=== PATIENT | female | born 1955 | race Caucasian/White ===

== ENCOUNTER 2020-01-20 18:45 | Emergency (ER) | payer MEDICARE, BC ==
--- NOTE | 2020-01-20 19:02 | EDM.PDOC ---
ED HPI GENERAL MEDICAL PROBLEM - General Chief Complaint: Lower Extremity Injury/Pain Stated Complaint: [facility] Time Seen by Provider: 01/20/20 19:02 - History of Present Illness INITIAL COMMENTS - FREE TEXT/NARRATIVE: 64-year-old female brought in by EMS after a slip and fall at [facility]. The patient was walking through the needle at [facility] and believes she slipped on some feces, the origin of this is unclear. This led to her falling and injuring her right knee. She denies any other injury associated with this except he may have stubbed her right great toe however this seems to be working okay and is not bothering her at this time she is not aware of any other associated injury secondary to this most untimely event. Significant medical problems she did not hit her head and has no other complaints. Right Knee Pain Score (Numeric/FACES): 7 - Related Data Allergies Allergy/AdvReac Type Severity Reaction Status Date / Time ibuprofen Allergy Hives Verified 01/20/20 18:57 Home Meds: Home Meds Thyroid [[place] Thyroid] 30 mg PO DAILY 01/20/20 [History] Social & Family History - Tobacco Use Smoking Status *Q: Never Smoker Second Hand Smoke Exposure: No - Caffeine Use Caffeine Use: Reports: None - Recreational Drug Use Recreational Drug Type: Reports: Marijuana/Hashish Review of Systems - Review of Systems Review Of Systems: See Below Constitutional: Reports: No Symptoms Respiratory: Reports: No Symptoms Cardiovascular: Reports: No Symptoms Genitourinary: Reports: No Symptoms Musculoskeletal: Reports: Other (Associated knee pain) Skin: Reports: No Symptoms Neurological: Reports: No Symptoms ED EXAM, GENERAL - Physical Exam Exam: See Below Exam Limited By: No Limitations General Appearance: Alert, No Apparent Distress, Other (Sitting there with her knees flexed she has obvious patella probable tendon disruption on the right as her patella is very high riding she will not attempt to straighten out her knee) Head: Atraumatic, Normocephalic Neck: Normal Inspection, Supple, Non-Tender, Full Range of Motion Respiratory/Chest: No Respiratory Distress, Lungs Clear, Normal Breath Sounds Cardiovascular: Regular Rate, Rhythm, No Edema, No Murmur Extremities: Other (Ocular status of her right foot appears to be normal patient will not allow me to reposition her leg. However the patella is in the patellofemoral groove but very high riding.) Course - Vital Signs Last Recorded V/S: Last Vital Signs Temp 36.2 C 01/20/20 18:54 Pulse 71 01/20/20 18:54 Resp 18 01/20/20 18:54 BP 112/62 01/20/20 18:54 Pulse Ox 98 01/20/20 18:54 - Orders/Labs/Meds Orders: Active Orders 24 hr Category Date Time Status Knee 1V or 2V Rt [CR] Stat Exams 01/20/20 19:08 Taken Durable Medical Equipment for Discharge [DME for Oth 01/20/20 19:55 Ordered Discharge] [COMM] Stat - Re-Assessments/Exams Free Text/Narrative Re-Assessment/Exam: 01/20/20 19:23 Obtain x-rays of the knee. And then proceed after that. 01/20/20 19:57 Shows a high riding patella on the lateral view the only views that could be obtained were a sunrise and the patella she has a high riding patella with what looks like a bony fragment I would presume from the tibial tuberosity however do not have good no views of the tibial tuberosity to be certain of this. Case was discussed with Dr. Arteaga, orthopedics on-call he recommends to a hinged knee brace if we have 1 as the patient cannot straighten her knee out and if this does not work posterior splint in the position she is in he would like to see her in the office on Tuesday or Tuesday. Departure - Departure Time of Disposition: 20:23 Disposition: Home, Self-Care 01 Clinical Impression: Avulsion of right patellar tendon - Discharge Information Referrals: Ronaldo Dorman MD [Primary Care Provider] - Reagan Arteaga MD [Physician] - Forms: ED Department Discharge Additional Instructions: Return to the emergency room with any questions problems or worsening symptoms. Tylenol as needed for discomfort if this does not work use the hydrocodone. If using the hydrocodone allow 12 hours after using this before driving returning to work or using hazardous equipment. Also if using the hydrocodone on a regular basis take a good stool softener as some people are prone to get constipation with this. Follow-up with Dr. Arteaga on Tuesday or Tuesday of this week. Call his office first thing tomorrow morning to schedule an appointment Wear the brace and use crutches at all times. Sepsis Event Note (ED) - Evaluation Sepsis Screening Result: No Definite Risk - Focused Exam Vital Signs: Vital Signs Temp Pulse Resp BP Pulse Ox 01/20/20 18:54 36.2 C 71 18 112/62 98 - My Orders Last 24 Hours: My Active Orders 01/20/20 19:08 Knee 1V or 2V Rt [CR] Stat 01/20/20 19:55 Durable Medical Equipment for Discharge [DME for Discharge] [COMM] Stat - Assessment/Plan Last 24 Hours: My Active Orders 01/20/20 19:08 Knee 1V or 2V Rt [CR] Stat 01/20/20 19:55 Durable Medical Equipment for Discharge [DME for Discharge] [COMM] Stat
--- NOTE | 2020-01-21 12:01 | CR ---
Right knee: Lateral and sunrise patellar views of the right knee were obtained. Inferior patellar fracture is seen with displacement. Mild comminution is also noted. No additional abnormality is seen. Impression: 1. Distal patellar fracture with displacement and comminution. Diagnostic code #3 This report was dictated in MDT
== END 2020-01-20 20:30 | disposition home or self-care (01) ==
LOC: JD.ED 18:45
DX: S76.191A Other specified injury of right quadriceps muscle, fascia and tendon, initial encounter (principal); Z88.6 Allergy status to analgesic agent; Z79.899 Other long term (current) drug therapy; W01.0XXA Fall on same level from slipping, tripping and stumbling without subsequent striking against object, initial encounter; Y92.512 Supermarket, store or market as the place of occurrence of the external cause
CPT/HCPCS: 73560-26-RT; 73560-RT; 99282; 99284

== ENCOUNTER 2020-01-31 06:23 | Day surgery (SDC) | payer MEDICARE, BC ==
[~2020-01-31 06:23] MED LIST: Lactated Ringers 1,000 ML IV SCH; Lidocaine 1%/Sod Bicarbonate in NS 8.4% 1 ML Syringe IDERM PRN; Sodium Chloride 0.9% 10 ML Syringe FLUSH PRN
[2020-01-31] MEDS ORDERED: Ropivacaine 0.5% 5 MG/ML 30 ML SDV ONE (06:30)
--- NOTE | 2020-01-31 06:33 | PCM.PREANE ---
Preanesthetic Assessment - Procedure Proposed Procedure: orif right patella fracture - Anesthesia/Transfusion/Family Hx Anesthesia History: Prior Anesthesia Without Reaction Family History of Anesthesia Reaction: No Transfusion History: No Prior Transfusion(s) - Review of Systems General: No Symptoms Pulmonary: Cough (chronic cough) Cardiovascular: No Symptoms Gastrointestinal: No Symptoms Neurological: No Symptoms Other: Reports: Thyroid Problems, Anxiety - Physical Assessment NPO Status Date: 01/30/20 NPO Status Time: 19:00 Vital Signs: 83 16 100% 144/84 97.2 Height: 5 ft 6 in Weight: 59 kg ASA Class: 2 Mental Status: Alert & Oriented x3 Airway Class: Mallampati = 1 Dentition: Reports: Normal Dentition Thyro-Mental Finger Breadths: 3 Mouth Opening Finger Breadths: 3 ROM/Head Extension: Full Lungs: Clear to Auscultation, Normal Respiratory Effort Cardiovascular: Regular Rate, Regular Rhythm - Lab Values: Laboratory Last Values COVID-19 PCR Not detected (NOT DETECT) 01/28/20 12:00 MRSA (PCR) Negative 01/23/20 13:22 - Allergies Allergies/Adverse Reactions: Allergies Allergy/AdvReac Type Severity Reaction Status Date / Time ibuprofen Allergy Hives Verified 01/30/20 13:41 - Blood Blood Available: No - Acknowledgements Anesthesia Type Planned: MAC Pt an Appropriate Candidate for the Planned Anesthesia: Yes Alternatives and Risks of Anesthesia Discussed w Pt/Guardian: Yes Pt/Guardian Understands and Agrees with Anesthesia Plan: Yes PreAnesthesia Questionnaire HEENT History: Reports: Impaired Vision, Other (See Below) Other HEENT History: WEARS GLASSES Cardiovascular History: Reports: None Respiratory History: Reports: Other (See Below) Other Respiratory History: CHRONIC COUGH Gastrointestinal History: Reports: None Genitourinary History: Reports: None UNCLAIMED PROPERTY MANAGER History: Reports: Other (See Below) Other OB/BYN History: CERVICAL DYSPLASIA, HRT THERAPY, VAGINAL VENEREAL WARTS, CONE BIOPSY Musculoskeletal History: Reports: Other (See Below) Other Musculoskeletal History: RIGHT PATELLA FRACTURE, AVULSION OF TIBIA Neurological History: Reports: None Psychiatric History: Reports: None Endocrine/Metabolic History: Reports: Hypothyroidism Hematologic History: Reports: None Immunologic History: Reports: None Oncologic (Cancer) History: Reports: None Dermatologic History: Reports: None - Past Surgical History Head Surgeries/Procedures: Reports: None Cardiovascular Surgical History: Reports: None Respiratory Surgical History: Reports: None GI Surgical History: Reports: Colonoscopy, EGD Female Surgical History: Reports: Cervical Cryotherapy, D&C Other Female Surgeries/Procedures: COLPOSCOPY Endocrine Surgical History: Reports: None Neurological Surgical History: Reports: None Musculoskeletal Surgical History: Reports: None Oncologic Surgical History: Reports: None Dermatological Surgical History: Reports: None - SUBSTANCE USE Smoking Status *Q: Never Smoker Tobacco Use Within Last Twelve Months: No Second Hand Smoke Exposure: No Recreational Drug Use History: Yes Recreational Drug Type: Reports: Marijuana/Hashish (long time ago) - HOME MEDS Home Medications: Home Meds Thyroid [[place] Thyroid] 30 mg PO DAILY 01/20/20 [History] Lactobacillus Acidophilus [Probiotic] 1 tab PO DAILY 01/30/20 [History] - CURRENT (IN HOUSE) MEDS Current Meds: Current Medications Lactated Ringer's (Ringers, Lactated) 1,000 mls @ 125 mls/hr IV ASDIRECTED SACHA Lidocaine/Sodium Bicarbonate (Buffered Lidocaine 1% In Ns 8.4%) 0.25 ml IDERM ONETIME PRN PRN Reason: Prior to IV Start Stop: 01/31/20 23:00 Sodium Chloride (Saline Flush) 10 ml FLUSH ASDIRECTED PRN PRN Reason: Keep Vein Open Stop: 01/31/20 23:00
[2020-01-31] MEDS ORDERED: cloNIDine 1,000 MCG/10 ML SDV ONE (06:35)
[2020-01-31] MEDS ORDERED: Dexamethasone 4 MG/ML 5 ML MDV ONE (06:35)
[2020-01-31] MEDS ORDERED: Lidocaine 1% 6 ML ONE (06:35)
[2020-01-31] MEDS ORDERED: Midazolam 1 MG/ML 2 ML SDV ONE ×2 (06:50→07:36)
[2020-01-31] MEDS ORDERED: fentaNYL 100 MCG/2 ML SDV ONE (06:51)
[2020-01-31] MEDS ORDERED: ceFAZolin 1 GM Vial ONE (07:36)
[2020-01-31] MEDS ORDERED: Propofol 200 MG/20 ML SDV ONE (07:59)
[2020-01-31] MEDS ORDERED: Bupivacaine 0.25% 10 ML SDV ONE (08:22)
[2020-01-31] MEDS ORDERED: Lactated Ringers 1,000 ML ONE (08:43)
--- NOTE | 2020-01-31 08:44 | PCM.PRNOTE ---
- Free Text/Narrative Note: Postoperative regional pain control requested by surgeon. Pre-op Dx: Rt patella fracture. Post-op Rx: Rt patella ORIF. Procedure: Rt Femoral nerve block with U/S guidance and nerve stimulator Requesting surgeon: Dr. Kirk Ct Risks and benefits discussed with the patient including Rt. leg weakness x 24 hrs., block failure, groin pain. Permit signed. Patient in preoperative room, stable , alert and awake. Time out performed. Oxygen 3L via NC. Right groin area was prepped with Chloraprep x 1 and allowed to dry. Midazolam IV 2 mg given. Local infiltration with 2 cc of 1% Lidocaine. The [facility] femoral nerve and artery were identified under ultrasound prior to needle insertion. 2" Stimuplex needle #22 G was inserted under US guidance. Needle penetration through fascia ross and fascia iliaca observed. Quadriceps femoris muscle response with patellar twitch obtained at 0.6 mA with nerve stimulation. Under direct visualization of needle tip the injection of 0.5% Ropivacaine with 1:200,000 epinephrine (23mls) , 5 ml of 1% Lidocaine with added 6 mg of Dexamethasone and 100 mcg of Clonidine, total of 30 mls in divided doses maintaining negative aspiration was completed without problems. No local anesthetic toxicity was noted. Patient is awake, stable and tolerated the procedure well. Please see the attached U/S images Time: 06:58 - 07:09
[2020-01-31] MEDS ORDERED: Ondansetron 4 MG/2 ML SDV IVPUSH PRN (08:47)
[2020-01-31] MEDS ORDERED: fentaNYL 100 MCG/2 ML SDV IVPUSH PRN (08:47)
[2020-01-31] MEDS ORDERED: HYDROmorphone 0.5 MG/0.5 ML Syringe IVPUSH PRN (08:47)
[2020-01-31] MEDS ORDERED: Ketamine 500 mg/10 ML MDV ONE (08:49)
--- NOTE | 2020-01-31 10:06 | PCM.POSTAN ---
POST ANESTHESIA ASSESSMENT - MENTAL STATUS Mental Status: Alert, Oriented - VITAL SIGNS Vital Signs: Last Vital Signs Temp 97.2 F 01/31/20 06:25 Pulse 71 01/31/20 07:00 Resp 16 01/31/20 07:00 BP 120/69 01/31/20 06:55 Pulse Ox 100 01/31/20 07:00 1002 107/51 82 18 97.2 97% - RESPIRATORY Respiratory Status: Respiratory Rate WNL, Airway Patent, O2 Saturation Stable, Supplemental Oxygen - CARDIOVASCULAR CV Status: Pulse Rate WNL, Blood Pressure Stable - GASTROINTESTINAL GI Status: No Symptoms - PAIN Pain Score: 0 - POST OP HYDRATION Hydration Status: Adequate & Stable
--- NOTE | 2020-01-31 10:07 | PCM48HPAN ---
Post Anesthesia Note - EVALUATION WITHIN 48HRS OF ANESTHETIC Vital Signs in Normal Range: Yes Patient Participated in Evaluation: Yes Respiratory Function Stable: Yes Airway Patent: Yes Cardiovascular Function Stable: Yes Hydration Status Stable: Yes Pain Control Satisfactory: Yes Nausea and Vomiting Control Satisfactory: Yes Mental Status Recovered: Yes Vital Signs: Last Vital Signs Temp 97.2 F 01/31/20 06:25 Pulse 71 01/31/20 07:00 Resp 16 01/31/20 07:00 BP 120/69 01/31/20 06:55 Pulse Ox 100 01/31/20 07:00 1001 82 18 97.2 107/51 97%
--- NOTE | 2020-01-31 10:08 | PCM.OPNOTE ---
- General Post-Op/Procedure Note Date of Surgery/Procedure: 01/31/20 Operative Procedure(s): open reduction of right bony fragment of patella with patellar ligament primary repair Pre Op Diagnosis: right patellar tendon avulsion fracture Post-Op Diagnosis: Same Anesthesia Technique: MAC, Regional Block Primary Surgeon: Reagan Arteaga Anesthesia Provider: Ashutosh Soni Vp [employer] Partnerships: Yoana Rogel in mLs: 10 Complications: None Condition: Good
--- NOTE | 2020-01-31 10:19 | CR ---
Right knee: 7 fluoroscopic spot views were obtained of the right knee. Study obtained utilizing C-arm device. Comparison: Prior right knee study of 01/20/20. Study shows reduction of previous displaced inferior patellar fracture. Final films shows [address] Small bony density remains inferior to the patella. Joint air is noted from the surgical procedure. Fluoroscopy time is given as 32.3 seconds. Impression: 1. Procedural study as noted above. Diagnostic code #2 This report was dictated in MDT
--- NOTE | 2020-02-06 09:01 | OR ---
DATE OF OPERATION: 01/31/2020 SURGEON: Reagan Arteaga MD OPERATION PERFORMED: Open reduction of right inferior pole of patellar avulsion fracture with patellar ligament primary repair. PREOPERATIVE DIAGNOSIS: Right patellar tendon avulsion fracture. POSTOPERATIVE DIAGNOSIS: Right patellar tendon avulsion fracture. ANESTHESIA: MAC with regional block. ANESTHESIA PROVIDER: Ashutosh Soni CRNA; and Klarissa Silva. FRETTED INSTRUMENT INSPECTOR: Yoana Rogel LPN. ESTIMATED BLOOD LOSS: 10 mL. COMPLICATIONS: None. CONDITION: Stable. DESCRIPTION OF PROCEDURE: The patient was identified in the preop holding area. Proper site was marked and identified by the surgeon. The patient was taken back to the operating theater. After adequate anesthesia, the patient had a nonsterile tourniquet applied to the right lower extremity and it was then sterilely prepped and draped in the usual sterile fashion. OR time-out was performed. The patient received 2 g IV Ancef. Right lower extremity was exsanguinated. Tourniquet was insufflated to 250 mmHg. At this time, standard anterior incision was made over the patellar, this was taken down and patellar tendon avulsion fracture as well as avulsion of the complete patellar tendon was identified. All previous hematoma was irrigated out of the knee joint. A curette and rongeur were used to remove hematoma off the bony fragments. One of the bony fragments were noted to be denuded of all tissue and this was then removed. There was still a good portion of bony fragment to be able to be repaired. A #5 FiberWire was then stitched using a modified Krackow stitch through the patellar tendon and the bony fragment. Two 0.069 K-wires were then placed in a retrograde fashion from the inferior pole through the fracture up superiorly through the quadriceps tendon and the superior pole of the patellar. A Hewson suture passer was then used to bring both limbs of the #5 FiberWire through the patellar and these were tied superiorly with good apposition of the patellar tendon and bony fragments with reduction of it against the larger patellar body. A #5 FiberWire was then used for closure and the medial retinaculum using [id number] stitches and then a #2 FiberWire was used for the medial portion and lateral portion making sure not to overtighten the lateral retinaculum. Adequate saline was then irrigated through the wound. 2-0 Vicryl was used subcutaneously and Prineo was used for the skin. The patient was placed in a sterile soft dressing and a hinged knee brace locked in extension, sent to the PACU in stable condition. SAMSON /[id number]
== END 2020-01-31 12:18 | disposition home or self-care (01) ==
LOC: JD.SDS 06:23
PROVIDERS: ATTEND Orthopaedic Surgery
DX: S82.001A Unspecified fracture of right patella, initial encounter for closed fracture (principal); E03.9 Hypothyroidism, unspecified; Z11.59 Encounter for screening for other viral diseases; Z88.6 Allergy status to analgesic agent; Z79.890 Hormone replacement therapy; W01.0XXA Fall on same level from slipping, tripping and stumbling without subsequent striking against object, initial encounter; Y92.512 Supermarket, store or market as the place of occurrence of the external cause
CPT/HCPCS: 27524; 76000; 87641; J0690; J0735; J1100; J2001; J2250; J2704; J2795; J3010; J3490; J7120; 01392; 64447; U0002